=== PATIENT | female | born 1985 | race Caucasian/White ===

== ENCOUNTER 2019-02-07 09:44 | Emergency (ER) | payer MEDICAID ==
[2019-02-07] MEDS ORDERED: CLINDAMYCIN HCL 150 MG CAP ONE (10:46)
[2019-02-07] MEDS ORDERED: ACETAMINOPHEN EXTRA STRENGTH 500 MG TABLET ONE (10:47)
== END 2019-02-07 11:22 | disposition home or self-care (01) ==
LOC: EDH 09:44
DX: K04.7 Periapical abscess without sinus (principal); L03.211 Cellulitis of face; Z98.890 Other specified postprocedural states; Z72.0 Tobacco use; Z88.0 Allergy status to penicillin; Z88.2 Allergy status to sulfonamides; Z88.6 Allergy status to analgesic agent

== ENCOUNTER 2019-07-24 20:07 | Emergency (ER) | payer MEDICAID | END 2019-07-24 20:44 | disposition left against medical advice (07) | LOC: EDH 20:07 | DX: R45.851 Suicidal ideations (principal); F32.9 Major depressive disorder, single episode, unspecified; Z98.890 Other specified postprocedural states; Z88.6 Allergy status to analgesic agent; Z88.0 Allergy status to penicillin; Z88.2 Allergy status to sulfonamides | CPT/HCPCS: 93005 ==

== ENCOUNTER 2021-05-15 19:39 | Emergency (ER) | payer MEDICAID ==
[~2021-05-15] VITALS: Ht 160 cm; Wt 56.0 kg
[2021-05-15] MEDS ORDERED: IBUPROFEN 600 MG TABLET PO ONE (21:00)
[2021-05-15 21:51] VITALS: BP 122/82
== END 2021-05-15 22:11 | disposition home or self-care (01) ==
LOC: EDH 19:39
DX: M25.511 Pain in right shoulder (principal); M54.50 Low back pain, unspecified; M79.672 Pain in left foot; Z90.49 Acquired absence of other specified parts of digestive tract; Z98.890 Other specified postprocedural states; Z88.0 Allergy status to penicillin; Z88.2 Allergy status to sulfonamides; Z88.6 Allergy status to analgesic agent; Y04.8XXA Assault by other bodily force, initial encounter; Y93.89 Activity, other specified; Y92.89 Other specified places as the place of occurrence of the external cause; Y99.8 Other external cause status
CPT/HCPCS: 72100; 73000; 73630

== ENCOUNTER 2021-07-05 11:54 | Inpatient (IN) | payer MEDICAID ==
[~2021-07-05] VITALS: Ht 152.4 cm; Wt 59.6 kg
[2021-07-05 12:57] LABS: BASOPHILS % (AUTO) 0.4 % (0.0-5.0); EOSINOPHILS % (AUTO) 0.1 % (0.0-8.0); HEMATOCRIT 44.1 % (36-48); MEAN CORPUSCULAR HEMOGLOBIN 34.5 pg (27.0-33.0); MEAN CORPUSCULAR VOLUME 101.4 fL (79-99); MONOCYTES % (AUTO) 6.8 % (3.0-13.0); NEUTROPHILS % (AUTO) 85.2 % (40.0-77.0); PLATELET COUNT (AUTO) 336 K/uL (130-400); RED BLOOD CELL COUNT(AUTO) 4.35 MIL/uL (4.00-5.50); RED CELL DISTRIBUTION WIDTH 12.3 % (11.0-15.5); WHITE BLOOD COUNT (AUTO) 25.8 K/uL (4.8-10.8)
[2021-07-05] MEDS ORDERED: KETOROLAC 30MG VIAL (30MG/ML) IVP ONE (13:00)
[2021-07-05] MEDS ORDERED: 0.9%NACL 1000ML 1,000 ML IV ONE ×2 (13:00→16:00)
[2021-07-05] MEDS ORDERED: ONDANSETRON 4MG INJ IVP ONE (13:00)
[2021-07-05 13:08] LABS: CREATININE 0.5 mg/dL (0.5-1.5)
[2021-07-05] MEDS: KETOROLAC 30MG VIAL (30MG/ML) IVP SCH ×2 (13:12→15:17)
[2021-07-05 13:13] LABS: ALBUMIN 3.8 g/dL (3.5-5.0); BILIRUBIN,TOTAL 0.4 mg/dL (0.2-1.0); TOTAL PROTEIN, SERUM 7.5 g/dL (6.0-8.3)
[2021-07-05 14:15] LABS: APPEARANCE,URINE Cloudy (CLEAR); BILIRUBIN,URINE Negative (NEGATIVE); COLOR,URINE Yellow (YELLOW); GLUCOSE, URINE (UA) Negative (NEGATIVE); KETONES,URINE Negative (NEGATIVE); LEUKOCYTE ESTERASE ,URINE Small (NEGATIVE); NITRATE,URINE Positive (NEGATIVE); OCCULT BLOOD,URINE Negative (NEGATIVE); PROTEIN,URINE Negative (NEGATIVE); UROBILINOGEN,URINE 0.2 mg/dL (0.2-1.0)
[2021-07-05 14:26] LABS: HCG,QUAL RESULT NEGATIVE (NEGATIVE)
[2021-07-05 14:41] LABS: BACTERIA,URINE Moderate /HPF (None Seen); RBC,URINE 0-1 /HPF (0-1)
[2021-07-05 14:43] LABS: SQUAMOUS EPITHELIAL CELL,UR Few /HPF (0-2)
[2021-07-05] MEDS ORDERED: CEFTRIAXONE 1G VIAL ONE (14:43)
[2021-07-05] MEDS ORDERED: 0.9%NACL 50ML 50 ML IV ONE (14:44)
[2021-07-05] MEDS ORDERED: PHARMACY COMMUNICATION MISC SCH (15:00)
[2021-07-05] MEDS ORDERED: TAMSULOSIN HCL 0.4 MG CAP.ER.24H PO SCH (15:00)
[2021-07-05] MEDS ORDERED: CEFTRIAXONE 1G VIAL IVP ONE (16:00)
[2021-07-05] MEDS ORDERED: ONDANSETRON 4MG INJ IVP PRN (16:00)
[2021-07-05 16:56] LABS: AMPHET/METH SCREEN,URINE NEGATIVE (NEGATIVE); BARBITURATE SCREEN, URINE NEGATIVE (NEGATIVE); BENZODIAZEPINES SCREEN,URINE NEGATIVE (NEGATIVE); CANNABINOID SCREEN,URINE NEGATIVE (NEGATIVE); COCAINE SCREEN,URINE POSITIVE (NEGATIVE); OPIATE SCREEN,URINE NEGATIVE (NEGATIVE); PHENCYCLIDINE SCREEN,URINE NEGATIVE (NEGATIVE)
[2021-07-05] MEDS ORDERED: NICOTINE 14 MG/ 24 HR PATCH TD SCH (17:00)
[2021-07-05] MEDS ORDERED: LORAZEPAM 0.5 MG TABLET PO SCH (17:00)
[2021-07-05] MEDS: MORPHINE 2 MG SYG IVP PRN ×2 (18:21→23:11)
[2021-07-05] MEDS: FAMOTIDINE 20MG TAB PO SCH (20:12)
[2021-07-05] MEDS: KETOROLAC 15MG/ML VIAL (15MG/ML) IV PRN (20:12)
[2021-07-05 21:05] VITALS: BP 124/75
[2021-07-06] VITALS (7 sets, daily range): BP systolic 113–129; BP diastolic 58–77
[2021-07-06] MEDS: KETOROLAC 15MG/ML VIAL (15MG/ML) IV PRN ×3 (02:50→19:11)
[2021-07-06 07:49] LABS: BASOPHILS % (AUTO) 0.5 % (0.0-5.0); HEMATOCRIT 38.1 % (36-48); LYMPHOCYTES % (AUTO) 21.1 % (21.0-51.0); MEAN CORPUSCULAR HGB CONC 32.5 g/dL (32.0-36.0); MEAN CORPUSCULAR VOLUME 101.3 fL (79-99); MONOCYTES % (AUTO) 7.5 % (3.0-13.0); NEUTROPHILS % (AUTO) 69.4 % (40.0-77.0); PLATELET COUNT (AUTO) 234 K/uL (130-400); RED BLOOD CELL COUNT(AUTO) 3.76 MIL/uL (4.00-5.50); RED CELL DISTRIBUTION WIDTH 12.6 % (11.0-15.5); WHITE BLOOD COUNT (AUTO) 13.3 K/uL (4.8-10.8)
[2021-07-06 07:57] LABS: CREATININE 0.6 mg/dL (0.5-1.5); POTASSIUM 4.1 mmol/L (3.5-5.1)
[2021-07-06] MEDS: LEVOFLOXACIN 500 MG TABLET PO SCH (08:36)
[2021-07-06] MEDS: FAMOTIDINE 20MG TAB PO SCH ×2 (08:36→21:16)
[2021-07-06] MEDS: MORPHINE 2 MG SYG IVP PRN ×2 (08:37→15:29)
[2021-07-06] MEDS ORDERED: NICOTINE 14 MG/ 24 HR PATCH TD SCH (11:30)
[2021-07-06] MEDS ORDERED: IOHEXOL 350 MG/ML 100ML INFUS..BTL IV ONE (16:10)
[2021-07-06] MEDS ORDERED: TRAZODONE HCL 100 MG TABLET PO SCH (21:00)
[2021-07-07] MEDS: MORPHINE 2 MG SYG IVP PRN ×2 (03:47→12:34)
[2021-07-07 03:52] VITALS: BP 130/77
[2021-07-07 04:01] LABS: HEMATOCRIT 38.2 % (36-48); MEAN CORPUSCULAR HEMOGLOBIN 33.1 pg (27.0-33.0); MEAN CORPUSCULAR HGB CONC 32.2 g/dL (32.0-36.0); MEAN CORPUSCULAR VOLUME 102.7 fL (79-99); RED BLOOD CELL COUNT(AUTO) 3.72 MIL/uL (4.00-5.50); RED CELL DISTRIBUTION WIDTH 12.4 % (11.0-15.5); WHITE BLOOD COUNT (AUTO) 11.5 K/uL (4.8-10.8)
[2021-07-07 04:15] LABS: CREATININE 0.5 mg/dL (0.5-1.5); POTASSIUM 3.7 mmol/L (3.5-5.1)
[2021-07-07 07:30] VITALS: BP 127/78
[2021-07-07] MEDS ORDERED: NICOTINE 14 MG/ 24 HR PATCH TD SCH (09:00)
[2021-07-07] MEDS: LEVOFLOXACIN 500 MG TABLET PO SCH (09:12)
[2021-07-07] MEDS: FAMOTIDINE 20MG TAB PO SCH (09:12)
[2021-07-07] MEDS: KETOROLAC 15MG/ML VIAL (15MG/ML) IV PRN (09:25)
[2021-07-07 11:00] VITALS: BP 107/61
[2021-07-07 16:00] VITALS: BP 122/65
== END 2021-07-07 17:45 | disposition home or self-care (01) | DRG 465 ==
LOC: EDH 11:54 → EDHIP 11:55 → OBSVTOIN 11:55 → 3CH 21:06
PROVIDERS: ADMIT Hospitalist; ATTEND Hospitalist
DX: N20.0 Calculus of kidney (principal); R45.851 Suicidal ideations; N39.0 Urinary tract infection, site not specified; F14.10 Cocaine abuse, uncomplicated; F17.210 Nicotine dependence, cigarettes, uncomplicated; K59.00 Constipation, unspecified; Z88.6 Allergy status to analgesic agent; Z88.0 Allergy status to penicillin; Z88.2 Allergy status to sulfonamides; Z90.49 Acquired absence of other specified parts of digestive tract; Z87.442 Personal history of urinary calculi; Z87.892 Personal history of anaphylaxis; D72.829 Elevated white blood cell count, unspecified
CPT/HCPCS: 36415; 71045; 74176; 74400; 80048; 80053; 80305; 81001; 81025; 83690; 85025; 85027; 87077; 87088; 87186; G0378; J0696; J1885; J2405; J7030; Q9967

== ENCOUNTER 2022-04-27 19:11 | Emergency (ER) | payer MEDICAID ==
[~2022-04-27] VITALS: Ht 152.4 cm; Wt 54.4 kg
[2022-04-27 19:48] LABS: BASOPHILS % (AUTO) 0.6 % (0.0-5.0); EOSINOPHILS % (AUTO) 1.5 % (0.0-8.0); HEMATOCRIT 43.5 % (36-48); MEAN CORPUSCULAR HEMOGLOBIN 33.3 pg (27.0-33.0); MEAN CORPUSCULAR HGB CONC 33.8 g/dL (32.0-36.0); MEAN CORPUSCULAR VOLUME 98.6 fL (79-99); MONOCYTES % (AUTO) 5.2 % (3.0-13.0); NEUTROPHILS % (AUTO) 36.5 % (40.0-77.0); PLATELET COUNT (AUTO) 245 K/uL (130-400); RED BLOOD CELL COUNT(AUTO) 4.41 MIL/uL (4.00-5.50); RED CELL DISTRIBUTION WIDTH 11.5 % (11.0-15.5); WHITE BLOOD COUNT (AUTO) 11.2 K/uL (4.8-10.8)
[2022-04-27 20:01] LABS: CARBON DIOXIDE 29 mmol/L (21-32); CHLORIDE 110 mmol/L (101-111); CREATININE 0.6 mg/dL (0.5-1.5); GLOMERULAR FILTR. RATE CALC 120 mL/min (>60); GLUCOSE,RANDOM 65 mg/dL (70-105); SODIUM SERUM 144 mmol/L (136-145); UREA NITROGEN, BLOOD 5 mg/dL (7-18)
[2022-04-27 20:02] LABS: APPEARANCE,URINE CLOUDY (CLEAR); BILIRUBIN,URINE NEGATIVE (NEGATIVE); COLOR,URINE LIGHT-YELLOW (YELLOW); GLUCOSE, URINE (UA) NEGATIVE (NEGATIVE); KETONES,URINE NEGATIVE (NEGATIVE); LEUKOCYTE ESTERASE ,URINE 500 Leu/uL (NEGATIVE); NITRATE,URINE NEGATIVE (NEGATIVE); OCCULT BLOOD,URINE LARGE (NEGATIVE); PH,URINE 5.5 (5.0-8.0); PROTEIN,URINE NEGATIVE (NEGATIVE); UROBILINOGEN,URINE 0.2 mg/dL (0.2-1.0)
[2022-04-27 20:06] LABS: ALANINE AMINOTRANSFERASE 247 U/L (12-78); ALBUMIN 3.7 g/dL (3.5-5.0); ALCOHOL, BLOOD 152 mg/dL (0-10); ASPARTATE AMINOTRANSFERASE 138 U/L (10-37); CREATINE KINASE, TOTAL 84 U/L (21-232); SALICYLATE 4.9 mg/dL (2.8-20.0); TOTAL PROTEIN, SERUM 7.2 g/dL (6.0-8.3)
[2022-04-27 20:09] LABS: BACTERIA,URINE MOD /HPF (None Seen); MUCUS,URINE RARE LPF (None Seen); OTHER CASTS, URINE 3 /LPF (None Seen); SQUAMOUS EPITHELIAL CELL,UR MOD /HPF (0-2); WBC,URINE 51-100 /HPF (0-1)
[2022-04-27 20:10] LABS: AMPHET/METH SCREEN,URINE NEGATIVE (NEGATIVE); BARBITURATE SCREEN, URINE NEGATIVE (NEGATIVE); BENZODIAZEPINES SCREEN,URINE POSITIVE (NEGATIVE); CANNABINOID SCREEN,URINE NEGATIVE (NEGATIVE); COCAINE SCREEN,URINE POSITIVE (NEGATIVE); OPIATE SCREEN,URINE NEGATIVE (NEGATIVE); PHENCYCLIDINE SCREEN,URINE NEGATIVE (NEGATIVE)
[2022-04-27 20:11] LABS: ACETAMINOPHEN < 1 mcg/mL (10-30)
[2022-04-28 03:22] VITALS: BP 124/74
== END 2022-04-28 03:32 ==
LOC: EDH 19:11
DX: T14.91XA Suicide attempt, initial encounter (principal); F10.129 Alcohol abuse with intoxication, unspecified; F19.129 Other psychoactive substance abuse with intoxication, unspecified; F20.9 Schizophrenia, unspecified; F31.9 Bipolar disorder, unspecified; Z88.0 Allergy status to penicillin; Z88.2 Allergy status to sulfonamides; Z88.6 Allergy status to analgesic agent; Z90.49 Acquired absence of other specified parts of digestive tract; Y90.6 Blood alcohol level of 120-199 mg/100 ml
CPT/HCPCS: 99285; 82550; 80053; 80305; 84703; 85025; 87077; 87088; 87186; 81001; 36415; 93005; G0481

== ENCOUNTER 2023-06-17 13:51 | Emergency (ER) | payer BC, MEDICAID ==
[~2023-06-17] VITALS: Ht 152.4 cm; Wt 61.2 kg
[2023-06-17 13:58] VITALS: BP 143/93; PULSE 91; RESP 16
[2023-06-17] MEDS: HYDROCODONE/ACETAMINOPHEN 5/325 MG TAB PO ONE (17:32)
[2023-06-17] MEDS: CYCLOBENZAPRINE HCL 10 MG TABLET PO ONE (17:33)
[2023-06-17] MEDS: KETOROLAC 30MG VIAL (30MG/ML) IVP ONE (17:34)
[2023-06-17] MEDS ORDERED: LIDO1ADH71 TP (18:10)
[2023-06-17] MEDS ORDERED: NAPR-1023 PO (18:10)
[2023-06-17] MEDS ORDERED: CYCL5TAB PO (18:10)
[2023-06-17] MEDS: SOLU-MEDROL 125MG VIAL IVP ONE (18:30)
== END 2023-06-17 18:32 | disposition home or self-care (01) ==
LOC: EDH 13:51
DX: S39.012A Strain of muscle, fascia and tendon of lower back, initial encounter (principal); F17.200 Nicotine dependence, unspecified, uncomplicated; F20.9 Schizophrenia, unspecified; Z88.0 Allergy status to penicillin; Z88.2 Allergy status to sulfonamides; Z88.6 Allergy status to analgesic agent; Z90.49 Acquired absence of other specified parts of digestive tract; Z98.890 Other specified postprocedural states; X58.XXXA Exposure to other specified factors, initial encounter; Y93.89 Activity, other specified; Y92.89 Other specified places as the place of occurrence of the external cause; Y99.8 Other external cause status
CPT/HCPCS: 99284; 96374; 96375; J2930; J1885

== ENCOUNTER 2024-05-17 18:40 | Emergency (ER) | payer BC ==
[~2024-05-17] VITALS: Ht 154.9 cm; Wt 52.2 kg
[~2024-05-17 18:40] MED LIST: CYCL5TAB3 PO; LIDO1ADH71 TP; NAPR-1194 PO
--- NOTE | 2024-05-17 19:12 | ERN ---
ED Note History of Present Illness Stated Complaint: DIZZYNESS,MULTIPLE COMPLAINTS Time Seen by MD: 19:07 Dictation: Patient is a 38-year-old female coming in today with complaints of elevated blood pressure after she quit smoking several weeks ago. She states when she quit smoking it always makes her blood pressure go up, she said she has been treated in the past by a doctor in [place] for blood pressure and stopped the medication seven months ago. Additionally she states she is having some chest pressure onset this morning. No nausea vomiting no fever no chills. No back pain no jaw pain no arm pain. Allergies: Coded Allergies: Penicillins (Unverified Allergy, Unknown, 02/07/19) Sulfa (Sulfonamide Antibiotics) (Unverified Allergy, Unknown, 02/07/19) aspirin (Unverified Allergy, Unknown, 02/07/19) Home Meds Active Scripts Lidocaine (Lidocaine Pain Relief) 4 % Adh..patch, 1 EACH TP DAILY for 5 Days, #5 ADH.PATCH Prov:MARU BERMUDEZ 06/17/23 Naproxen (Naproxen) 500 Mg Tablet, 500 MG PO BID for 5 Days, #10 TAB Prov:MARU BERMUDEZ 06/17/23 Cyclobenzaprine HCl (Cyclobenzaprine HCl) 5 Mg Tablet, 5 MG PO DAILYDINNER for 5 Days, #5 TAB Prov:MARU BERMUDEZ 06/17/23 Past Medical History Past Medical History: Bipolar, Hepatitis, Schizophrenia, Other Additional Past Medical Hx: HEP C, PTSD Surgical History: Cholecystectomy, BTL, Surgical History Other: CARP TUNNEL Family History: Negative Social History: Smokers, Negative History: Not Applicable RN Note Reviewed/Agreed w/PFSH: Yes Review of System Dictation CONSTITUTIONAL: Negative except for HPI HEAD/FACE: Negative except for HPI EENT: Negative except for HPI RESPIRATORY: Negative except for HPI chest pressure GASTROINTESTINAL/ABDOMINAL: Negative except for HPI GENITOURINARY: Negative except for HPI MUSCULOSKELETAL: Negative except for HPI INTEGUMENTARY: Negative except for HPI NEUROLOGICAL/PSYCH: Negative except for HPI HEMATOLOGIC/LYMPHATIC: Negative except for HPI All Systems Negative, Except as noted above. 13 point review of systems assessed and all negative except for above. Initial Vital Sign VS Vital Signs Date Time Temp Pulse Resp B/P (MAP) Pulse Ox O2 Delivery O2 Flow Rate FiO2 05/17/24 19:35 98.2 103 20 127/99 98 Room Air 05/17/24 20:16 0 21 Physical Exam Dictation Vital Signs reviewed General Appearance: Alert, oriented x 3, no acute distress, well developed, nourished. Head and Face: non-traumatic. Eyes: PERRL, pink conjunctivas, eyelid no trauma, anterior chamber with arcus senilis. Ears: Pinnas intact and no signs of trauma or erythema ear canals clear and no discharge TM no erythema Nose: No discharge, no bleeding. Oropharynx: Mouth normal, tongue pink, pharynx clear,no erythema, tonsils no exudates, no abscesses noted, mucous membrane moist Neck: Supple, non-tender, no thyromegaly, no masses, no JVD, no bruits Breast:Deferred Chest:No tenderness, no crepitus, no paradoxical movement, no retractions Lungs:Clear, well-ventilated, symmetric, no rales, no wheezing, no rhonchi, no stridor, good breath sounds bilaterally Heart: Regular rate, regular rhythm, no murmur, no gallops Vascular: no peripheral edema, Abdomen: Soft, positive bowel sounds, nondistended, no guarding, nontender, no rebound, no masses no hepatomegaly, no splenomegaly, no Cardenas's sign, no hernias. Rectal: Deferred Genital: Deferred Neurological: Normal speech, motor function intact, sensory function intact Musculoskeletal: Neck nontender, full range of motion, back nontender, full range of motion, Extremities: nontender, full range of motion Skin: Color pink, dry, no turgor, no rash, no lacerations, no abrasions, no contusions. Lymphatic: Deferred Results (Laboratory/Radiology) Laboratory/Radiology Laboratory Tests Test 05/17/24 20:06 White Blood Count 10.4 K/uL (4.8-10.8) Red Blood Count 4.69 MIL/uL (4.00-5.50) Hemoglobin 15.6 g/dL (12.0-16.0) Hematocrit 45.1 % (36-48) Mean Corpuscular Volume 96.2 fL (79-99) Mean Corpuscular Hemoglobin 33.3 pg (27.0-33.0) H Mean Corpuscular Hemoglobin Concent 34.6 g/dL (32.0-36.0) Red Cell Distribution Width 11.9 % (11.0-15.5) Platelet Count 233 K/uL (130-400) Mean Platelet Volume 10.1 fL (7.5-10.5) Immature Granulocyte % (Auto) 0.3 % (0-1) Neutrophils (%) (Auto) 46.9 % (40.0-77.0) Lymphocytes (%) (Auto) 41.1 % (21.0-51.0) Monocytes (%) (Auto) 9.8 % (3.0-13.0) Eosinophils (%) (Auto) 1.2 % (0.0-8.0) Basophils (%) (Auto) 0.7 % (0.0-5.0) Neutrophils # (Auto) 4.9 K/uL (1.8-7.7) Lymphocytes # (Auto) 4.3 K/uL (1.0-4.8) Monocytes # (Auto) 1.0 K/uL (0.1-1.0) Eosinophils # (Auto) 0.13 K/uL (0.00-0.70) Basophils # (Auto) 0.07 K/uL (0.00-0.20) Absolute Immature Granulocyte (auto 0.03 K/uL (0-1) Nucleated Red Blood Cells 0.0 % (0.0-0.19) Sodium Level 140 mmol/L (136-145) Potassium Level 4.2 mmol/L (3.5-5.1) Chloride Level 103 mmol/L (101-111) Carbon Dioxide Level 29 mmol/L (21-32) Blood Urea Nitrogen 16 mg/dL (7-18) Creatinine 0.6 mg/dL (0.5-1.0) Glomerular Filtration Rate Calc 117 mL/min (>90) Random Glucose 95 mg/dL (70-105) Total Calcium 9.8 mg/dL (8.5-10.1) Troponin I High Sensitivity < 4 ng/L (4-50) L Labs Reviewed?: Yes EKG Comment: EKG NORMAL SINUS RHYTHM/HEART RATE 81/AXIS NORMAL/NO ECTOPY ED Course ED Course Orders Procedure Category Date Status Time Cbc With Differential LAB 05/17/24 Complete 19:10 12 Lead Ekg Tracing- EKG 05/17/24 Complete Technical 19:10 Troponin I High LAB 05/17/24 Complete Sensitivity 19:10 Basic Metabolic Panel LAB 05/17/24 Complete 19:10 Vital Signs Date Time Temp Pulse Resp B/P (MAP) Pulse Ox O2 Delivery O2 Flow Rate FiO2 05/17/24 20:16 98.6 86 18 140/95 98 Room Air* 0 21 05/17/24 19:35 98.2 103 20 127/99 98 Room Air LATEST BLOOD PRESSURE 140/95 WE WILL DISCHARGE PATIENT HOME WITH BENIGN HYPERTE NSION WE WILL PRESCRIBE ENALAPRIL AND HAVE HER SEE HER DOCTOR IN [facility]. HEART Score Response (Comments) Value History: Low suspicion (0) 0 EKG: Normal 0 Age: < 45yrs (0) 0 Risk Factors: 1-2 risk factors (+1) 1 Initial Troponin: Normal limit (0) 0 Total 1 Medical Decision Making MDM MEDICAL DISCHARGE MAKING BASED ON EKG AND BASIC LABS. FOR BLOOD PRESSURE ALL LABS NORMAL EKG NORMAL PATIENT DISCHARGED HOME WITH BENIGN HYPERTENSION WE WILL BE PRESCRIBED ENALAPRIL5 MG AND TOLD TO SEE HER DOCTOR DX & DISP Disposition: Discharge Departure Impression: Primary Impression: Benign hypertension Condition: Stable Scripts Enalapril Maleate (Enalapril Maleate) 5 Mg Tablet 1 TAB PO DAILY for 30 Days, #30 TAB 0 Refills Prov: DEWAYNE WHELAN JUVENILE DETENTION OFFICER 05/17/24 Additional Instructions: FOLLOW-UP WITH PRIMARY CARE PROVIDER IN 1 TO 2 DAYS. TAKE MEDICATIONS DIRECTED HERE IN THE EMERGENCY ROOM. OKAY TO CONTINUE HOME MEDICATIONS UNLESS OTHERWISE DISCUSSED DURING YOUR VISIT IN THE EMERGENCY ROOM TODAY. RETURN TO YOUR NEAREST EMERGENCY ROOM IF SYMPTOMS WORSEN OR IF THERE IS NO IMPROVEMENT. CALL 911 IF YOU NEED IMMEDIATE ASSISTANCE. TAKE TYLENOL OR MOTRIN [id number] NEEDED AND IF NO CONTRAINDICATIONS ARE PRESENT. INCREASE ORAL HYDRATION. A WOUND CULTURE OR URINE CULTURE WAS ORDERED HERE IN THE EMERGENCY ROOM DEPARTMENT PLEASE FOLLOW-UP WITH PRIMARY CARE PROVIDER AND ADVISE THEM TO GET REPEAT PORTS FROM OUR FACILITY. IF YOU HAD ANY [place] WRAP/SPLINTS THAT WERE APPLIED HERE, PLEASE DO NOT REMOVE THEM UNTIL YOU SEE YOUR PRIMARY CARE OR SPECIALTY. TAKE ENALAPRIL DIRECTED DAILY FOR BLOOD PRESSURE. FOLLOW UP WITH YOUR PRIMARY CARE DOCTOR IN THE NEXT 1-2 DAYS. Referrals: SELF,REFERRAL (PCP) Time of Disposition: 20:50 I have reviewed the case, and I agree with, Diagnosis and Plan DEWAYNE WHELAN NP May 17, 2024 19:12
--- NOTE | 2024-05-17 19:46 | EKG ---
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
[2024-05-17 20:16] VITALS: BP 140/95; PULSE 86; RESP 18; TEMP 98.6; O2SAT 98
[2024-05-17 20:20] LABS: BASOPHILS # (AUTO) 0.07 K/uL (0.00-0.20); BASOPHILS % (AUTO) 0.7 % (0.0-5.0); EOSINOPHILS # (AUTO) 0.13 K/uL (0.00-0.70); EOSINOPHILS % (AUTO) 1.2 % (0.0-8.0); HEMATOCRIT 45.1 % (36-48); IMMATURE GRANULOCYTE ABSOLUTE 0.03 K/uL (0-1); LYMPHOCYTES # (AUTO) 4.3 K/uL (1.0-4.8); LYMPHOCYTES % (AUTO) 41.1 % (21.0-51.0); MEAN CORPUSCULAR HEMOGLOBIN 33.3 pg (27.0-33.0); MEAN CORPUSCULAR HGB CONC 34.6 g/dL (32.0-36.0); MEAN CORPUSCULAR VOLUME 96.2 fL (79-99); MONOCYTES % (AUTO) 9.8 % (3.0-13.0); NEUTROPHILS # (AUTO) 4.9 K/uL (1.8-7.7); NEUTROPHILS % (AUTO) 46.9 % (40.0-77.0); PLATELET COUNT (AUTO) 233 K/uL (130-400); RED BLOOD CELL COUNT(AUTO) 4.69 MIL/uL (4.00-5.50); RED CELL DISTRIBUTION WIDTH 11.9 % (11.0-15.5); WHITE BLOOD COUNT (AUTO) 10.4 K/uL (4.8-10.8)
[2024-05-17 20:29] LABS: CREATININE 0.6 mg/dL (0.5-1.0); POTASSIUM 4.2 mmol/L (3.5-5.1)
[2024-05-17] MEDS ORDERED: ENAL-87 PO (20:51)
== END 2024-05-17 21:08 | disposition home or self-care (01) ==
LOC: EDH 18:40
DX: I10 Essential (primary) hypertension (principal); F20.9 Schizophrenia, unspecified; F17.200 Nicotine dependence, unspecified, uncomplicated; Z88.0 Allergy status to penicillin; Z88.2 Allergy status to sulfonamides; Z88.6 Allergy status to analgesic agent; Z90.49 Acquired absence of other specified parts of digestive tract; Z98.51 Tubal ligation status
CPT/HCPCS: 36415; 80048; 84484; 85025; 93005; 99284

== ENCOUNTER 2024-06-17 09:11 | Emergency (ER) | payer BC, MEDICAID ==
[~2024-06-17] VITALS: Ht 162.6 cm; Wt 52.2 kg
[~2024-06-17 09:11] MED LIST changes: +ENAL-87 PO
--- NOTE | 2024-06-17 10:36 | ERN ---
ED Note History of Present Illness Stated Complaint: FALL Chief Complaint: Mechanical Fall Dictation: History of present illness: 38-year-old female past medical history of hypertension, insomnia, anxiety, nephrolithiasis with history of stent placement presented to ED with the complaints of sudden onset of lower in after she had a fall yesterday night. As per the patient she tripped on a cord and fell with her lower back hitting the ground. She experienced sudden onset excruciating lower back pain with numbness radiating down to the right thigh. No loss of consciousness, no headache, no vomiting, no urinary or bowel accidents. Allergies: Coded Allergies: Penicillins (Unverified Allergy, Unknown, 02/07/19) Sulfa (Sulfonamide Antibiotics) (Unverified Allergy, Unknown, 02/07/19) aspirin (Unverified Allergy, Unknown, 02/07/19) Home Meds Active Scripts Enalapril Maleate (Enalapril Maleate) 5 Mg Tablet, 1 TAB PO DAILY for 30 Days, #30 TAB 0 Refills Prov:DEWAYNE WHELAN AUTOMATIC TRANSMISSION MECHANIC 05/17/24 Lidocaine (Lidocaine Pain Relief) 4 % Adh..patch, 1 EACH TP DAILY for 5 Days, #5 ADH.PATCH Prov:MARU BERMUDEZ 06/17/23 Naproxen (Naproxen) 500 Mg Tablet, 500 MG PO BID for 5 Days, #10 TAB Prov:MARU BERMUDEZ 06/17/23 Cyclobenzaprine HCl (Cyclobenzaprine HCl) 5 Mg Tablet, 5 MG PO DAILYDINNER for 5 Days, #5 TAB Prov:MARU BERMUDEZ 06/17/23 Past Medical History Past Medical History: Other Additional Past Medical Hx: HEP C Surgical History: Cholecystectomy, Surgical History Other: CARP TUNNEL Family History: Negative Social History: Smokers, Negative History: Not Applicable Review of System Dictation REVIEW OF SYSTEMS Positive for mid back pain CONSTITUTIONAL: Denies fevers, chills, or night sweats. No unintentional weight loss reported. ENT: No hearing loss, otalgia, otorrhea, rhinitis, rhinorrhea, hoarseness, or sore throat. CARDIOVASCULAR: Denies any exertional angina, dyspnea on exertion, orthopnea, paroxysmal nocturnal dyspnea, palpitations claudication. PULMONARY: Denies any shortness of breath, cough, phlegm / sputum, hemoptysis, pleuritic chest pain. SLEEP: Denies morning headaches, daytime somnolence or napping. Denies difficulty falling asleep, staying asleep, waking from sleep. Denies knowledge of snoring. GASTROINTESTINAL: Denies any type of dysphagia to either liquids or solids. Denies nausea, vomiting, abdominal pain, diarrhea, constipation, blood in stools . NEUROLOGICAL: Denies headache, motor weakness, sensory deficit, vertigo / s pinning sensation, gait abnormalities, or tremors. GENITOURINARY: Denies frequency, urgency, nocturia, hematuria or incontinence, low urinary stream, straining to void, urinary intermittency or hesitancy ENDOCRINOLOGY: Denies polyuria, polydipsia, polyphagia or heat / cold intolerance. HEMATOLOGY: Denies thrombophilia / previous clots, or coagulopathy / bleeding disorders. ONCOLOGIC: Denies personal history of malignancy. DERMATOLOGIC: Denies rashes or pruritus. PSYCHIATRIC: Denies any suicidal or homicidal ideation. Denies hallucinations. Initial Vital Sign VS Vital Signs Date Time Temp Pulse Resp B/P (MAP) Pulse Ox O2 Delivery O2 Flow Rate FiO2 06/17/24 09:11 97.3 93 20 121/81 100 Room Air 0 Physical Exam Dictation PHYSICAL EXAM GENERAL APPEARANCE: Well nourished . Awake and alert. Oriented to time, place and person. Patient appear in mild distress due to pain HEENT: Head normocephalic , atraumatic. Sclera anicteric . Pupils are round and reactive. Extraocular movements intact . No conjunctival injection. No nasal congestion. No throat congestion .Oral mucosa moist. NECK: Supple. No JVD. No thyromegaly. No submental, submandibular, pre- /postauricular, occipital or supraclavicular lymphadenopathy. No carotid bruits. CHEST: Normal chest expansion. No Telemetry. LUNGS: Clear to auscultation bilaterally . No rales, rhonchi or any wheezing. Equal tactile fremitus. Resonant to percussion . CARDIOVASCULAR: Regular rate and rhythm. S1 and S2 normal. No rubs, murmurs or gallops. ABDOMEN: Soft, nontender, and nondistended. There is no rebound tenderness, voluntary guarding, or rigidity. No hepatosplenomegaly. Bowel sounds normal in all four quadrants . NEUROLOGICAL: Cranial nerves II-XII grossly intact. Motor is 5/5 in bilateral upper and lower extremities . No sensory deficits. Tenderness elicited on lumbar spine with paraspinal muscle spasm EXTREMITIES: No edema, No cyanosis , No clubbing. Good capillary refill. SKIN: No skin breakdown. No rashes or lesions . PSYCHIATRY: Normal affect .No auditory or visual hallucinations. Normal speech. No dysarthria. ED Course ED Course Orders Procedure Category Date Status Time Morphine 4mg Syg PHA 06/17/24 Complete (Morphine 4mg Syg) 10:00 ,Urine Test LAB 06/17/24 Logged 09:43 Lumbar Spine 4+Vws RAD 06/17/24 Resulted 09:43 Current Medications Medications (Trade) Dose Ordered Sig/Lorenzo Route PRN Reason Start Time Stop Time Status Last Admin Dose Admin Morphine Sulfate (morPHINE 4MG SYG) 4 mg ONCE ONCE IM 06/17/24 10:00 06/17/24 10:01 DC Vital Signs Date Time Temp Pulse Resp B/P (MAP) Pulse Ox O2 Delivery O2 Flow Rate FiO2 06/17/24 09:11 97.3 93 20 121/81 100 Room Air 0 9:30 am -patient complained of excruciating back pain. She is hemodynamically stable. Given her 4 mg of morphine stat. 10:30 a.m.-x-ray of lumbar spine negative for fracture. Plan to discharge her home on pain meds. Medical Decision Making MDM Differential diagnosis : Paraspinal muscle spasm, lumbar vertebra fracture, spondylolisthesis Rationale: Tests considered and ordered secondary to shared decision making include: I will re-evaluate the patient after treatment and diagnostic exams have returned to determine whether they require further testing, can be safely discharged home, or need admission for further treatment and evaluation. Given the social determinants of health affecting care, including literacy, access to medical care, prescription drug management, and [id number] drugs, I will ensure that treatment plans are tailored accordingly. There are no social concerns with this patient. Risk of complication and/or morbidity or mortality of patient management: None Need for hospitalization: Patient does not meet criteria for hospitalization. Need for emergency major/minor surgery: No Prescription drug management Prescriptions will include symptomatic care Medications-Per medication reconciliation Previous outside records reviewed: Old ER visits. Patient's prior external medical records from other ER visits were reviewed by me as indicated. Prior testing and results from previous visits were reviewed. Prior tests were taken into account with medical decision making and resource utilization, independent historian/historians were used to obtain complete medical history. I independently interpreted the test that were performed, results were reviewed by me and considered findings on radiology. Medical management and examination interpretation discussions was done by me with other qualified healthcare professionals as indicated for the patient's care. Revaluation: Lumbar x-ray with no evidence of fracture.Paraspinal muscle spasm present. Disposition : Home DX & DISP Disposition: Discharge Departure Impression: Primary Impression: Lumbar paraspinal muscle spasm Additional Impression: Lumbar strain Condition: Stable Scripts Orphenadrine Citrate (Norflex) 100 Mg Srtab 1 TAB PO [id number] PRN for pain for 5 Days, #10 TAB 0 Refills Prov: KEKE LU MD 06/17/24 Additional Instructions: Follow-up with primary care provider in 1-2 days Take medications as directed here in the emergency room. It is okay to continue home medications unless otherwise discussed during your visit in the emergency room today. Increase oral hydration. If a wound culture or urine culture was ordered here in the emergency room department, please follow-up with primary care provider and advised them to get reports from our facility. If you had any Simone wrap/splints that were applied here placed to not remove them until you see your primary care physician. Return to your nearest emergency room if symptoms worsen or if there is no improvement. Call 911 if you need immediate assistance. Referrals: GINA LANGE AUTOMATIC TRANSMISSION MECHANIC (PCP) KEKE LU MD Jun 17, 2024 10:36
--- NOTE | 2024-06-17 10:53 | HMCIMG ---
Exam Type: LUMBAR SPINE 4+VWS Clinical Information: H/O FALL WITH SPNAL TENDERNESS Comparison: None Findings: Exam of the lumbosacral spine demonstrates no evidence of fracture or subluxation. There are mild spondylitic changes. The facet joints show minimal degenerative changes. The alignment of the spine is normal. The disc spaces are intact. Bone mineralization is normal. Incidentally, there is evidence of left-sided nephrolithiasis. Impression: Spondylitic changes and degenerative changes of the apophyseal joints as noted.
[2024-06-17] MEDS ORDERED: ORPH100 PO (11:09)
[2024-06-17 11:11] VITALS: BP 120/80; PULSE 90; RESP 18; TEMP 98.1; O2SAT 100
[2024-06-17] MEDS: morPHINE 4 MG SYG IM ONE (11:17)
--- NOTE | 2024-06-17 11:20 | NUR ---
pend dc obs narc admin
[2024-06-17 11:27] LABS: AMPHET/METH SCREEN,URINE NEGATIVE (NEGATIVE); BARBITURATE SCREEN, URINE NEGATIVE (NEGATIVE); BENZODIAZEPINES SCREEN,URINE NEGATIVE (NEGATIVE); CANNABINOID SCREEN,URINE NEGATIVE (NEGATIVE); COCAINE SCREEN,URINE POSITIVE (NEGATIVE); OPIATE SCREEN,URINE NEGATIVE (NEGATIVE); PHENCYCLIDINE SCREEN,URINE NEGATIVE (NEGATIVE)
[2024-06-17] MEDS ORDERED: ACET-2247 PO (11:28)
== END 2024-06-17 11:45 | disposition home or self-care (01) ==
LOC: EDH 09:11 → EEVIPCON 09:11 → EDH 11:45
DX: S39.012A Strain of muscle, fascia and tendon of lower back, initial encounter (principal); I10 Essential (primary) hypertension; F41.9 Anxiety disorder, unspecified; F17.200 Nicotine dependence, unspecified, uncomplicated; Z79.899 Other long term (current) drug therapy; Z88.0 Allergy status to penicillin; Z88.2 Allergy status to sulfonamides; Z88.6 Allergy status to analgesic agent; Z90.49 Acquired absence of other specified parts of digestive tract; W01.0XXA Fall on same level from slipping, tripping and stumbling without subsequent striking against object, initial encounter; Y93.89 Activity, other specified; Y92.89 Other specified places as the place of occurrence of the external cause; Y99.8 Other external cause status
CPT/HCPCS: 99284; 80305; 81025; 72110; 96372; J2270